=== PATIENT | male | born 1945 | race African-American/Black ===

== ENCOUNTER 2018-01-12 15:32 | Emergency (ER) | payer MEDICARE, OTHER ==
[~2018-01-12] VITALS: Ht 167.6 cm; Wt 64.0 kg
--- OUTSIDE RECORDS SUMMARY | 2018-01-12 15:39 | XMS REPORT | Continuity of Care Document ---
Author Author [facility] Organization [facility] Address Unknown Phone Unavailable Allergies Active Description Code Type Severity Reaction Onset Reported/Identified Relationship to Patient Clinical Status Yes No Known Drug Allergies [id number] N/A N/A Medications There is no data. Problems Date Dx Coded Attending Type Code Diagnosis Diagnosed By 09/25/2017 P I248 Other forms of acute ischemic heart disease 09/25/2017 S R0602 Shortness of breath 09/25/2017 S R0789 Other chest pain 09/25/2017 S R9431 Abnormal electrocardiogram [ECG] [EKG] 09/25/2017 S Z751 Person awaiting admission to adequate facility elsewhere 09/25/2017 S Z7982 retirement ( current) use of aspirin 09/25/2017 S [id number] Other care home (current) drug therapy 09/25/2017 S [id number] Personal history of nicotine dependence Procedures There is no data. Results There is no data. Encounters ACCT No. Visit Date/Time Discharge Status Pt. Type Provider Facility Loc./Unit Complaint [id number] 12/18/2017 12:41:36 12/18/2017 23:59:59 CLS Outpatient Harman Perez [id number] 12/17/2017 16:04:15 12/17/2017 23:59:59 CLS Outpatient Xochitl Keane [id number] 10/09/2017 14:51:14 10/09/2017 23:59:59 CLS Outpatient Xochitl Keane [id number] 09/03/2017 15:00:26 09/03/2017 23:59:59 CLS Outpatient Xochitl Keane [id number] 05/22/2017 12:31:07 05/22/2017 23:59:59 CLS Outpatient Xochitl Keane [id number] 12/25/2017 18:25:23 Document Registration [id number] 12/10/2017 19:50:56 Document Registration [id number] 12/10/2017 18:22:38 Document Registration [id number] 09/25/2017 01:52:00 Document Registration
[2018-01-12] MEDS ORDERED: HYDROcodone/APAP 5 MG/325 MG (LORTAB) TAB ONE (16:22)
--- NOTE | 2018-01-12 16:29 | ED General ---
General Chief Complaint: Orthopedic Problems Stated Complaint: POST OP BLEED Nursing Triage Note: PT TO ROOM 3 PER W/C PT CO OF L RECENT BKA BLEEDING, PT RELEASED FROM [facility] TODAY, PT HAS SURAJ RED BLOOD NOTED FROM BANDAGE ON L LOWER LEG, PT STATES HAS ALOT OF BLEEDING NOTED FROM SURGICAL AREA ON CARPET OF VEHICLE. Nursing Sepsis Screen: No Definite Risk Source of Information: Patient, Old Records Exam Limitations: No Limitations History of Present Illness Date Seen by Provider: Jan 12, 2018 Time Seen by Provider: 15:37 Initial Comments This 72-year-old gentleman presents to the emergency room with postoperative bleeding from his left BKA site. He was just dismissed from [facility] where he had the BKA performed. He reports his dressings were clean and and dry when he left. In route home to [place], [place], he noticed copious bloody drainage from the dressing to the extent that it dripped perhaps 1-2 mL of blood on the floor of his truck. He presents to the ER for assessment. Patient does take aspirin and Plavix. He recently had a stent placed in the left lower extremity. Allergies and Home Medications Allergies Coded Allergies: No Known Drug Allergies (Unverified , 01/12/18) Patient Home Medication List Home Medication List Reviewed: Yes Review of Systems Constitutional: no symptoms reported EENTM: no symptoms reported Respiratory: no symptoms reported Cardiovascular: see HPI Gastrointestinal: no symptoms reported Genitourinary: no symptoms reported Musculoskeletal: see HPI Skin: no symptoms reported Psychiatric/Neurological: No Symptoms Reported Hematologic/Lymphatic: See HPI Immunological/Allergic: no symptoms reported Past Ijfzxkr-Gdypfe-Hbesbl Hx Past Med/Social Hx: Reviewed and Corrections made Patient Social History Alcohol Use: Denies Use Recreational Drug Use: No Smoking Status: Former Smoker Recent Foreign Travel: No Contact w/Someone Who Travel: No Recent Infectious Disease Expo: No Recent Hopitalizations: Yes ([facility] DAY HOSP STAY) Physical Abuse: No Sexual Abuse: No Seasonal Allergies Seasonal Allergies: No Past Medical History Surgeries: Yes (STENTS, LBKA) Amputation, Orthopedic Respiratory: No Cardiac: Yes Coronary Artery Disease, Heart Attack, Hypertension, Peripheral Vascular Neurological: No Genitourinary: No Gastrointestinal: No Musculoskeletal: Yes (LBKA) Endocrine: Yes Diabetes, Non-Insulin dep HEENT: No Cancer: No Psychosocial: No Nursing Suicide Risk Score: 0 Physical Exam Vital Signs Vital Signs - First Documented 01/12/18 15:35 Temp 98.1 Pulse 77 Resp 18 B/P (MAP) 100/68 (79) Pulse Ox 99 Capillary Refill : Less Than 3 Seconds General Appearance: No Apparent Distress, WD/WN HEENT: PERRL/EOMI, Normal ENT Inspection Neck: Normal Inspection Respiratory: Lungs Clear, Normal Breath Sounds, No Accessory Muscle Use, No Respiratory Distress Cardiovascular: Regular Rate, Rhythm, No Edema, No Murmur Extremity: Other (Wound over the left BKA is intact. One staple has torn loose and it was removed. 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 Norm as Tested Skin: Normal Color, Warm/Dry, Other (See above) Progress/Results/Core Measures Suspected Sepsis Recent Fever Within 48 Hours: No Infection Criteria Present: None New/Unexplained Altered Menta: No Sepsis Screen: No Definite Risk SIRS Temperature:98.1 Pulse: 77 Respiratory Rate: 18 Blood Pressure 100 /68 Mean: 79 Results/Orders My Orders Orders - SRINIVAS AGUILAR MD Hydrocodone/Apap 5/325 Tablet (Lortab 5 (01/12/18 16:30) Hydrocodone/Apap 5/325 Tablet (Lortab 5 (01/12/18 16:22) Medications Given in ED Current Medications Medications Dose Ordered Sig/Jessy Route Start Time Stop Time Status Last Admin Dose Admin Acetaminophen/ Hydrocodone Bitart 1 tab ONCE ONCE PO 01/12/18 16:30 01/12/18 16:31 DC 01/12/18 16:30 1 TAB Vital Signs/I&O 01/12/18 01/12/18 15:35 16:45 Temp 98.1 98.1 Pulse 77 77 Resp 18 18 B/P (MAP) 100/68 (79) 100/68 (79) Pulse Ox 99 99 Capillary Refill : Less Than 3 Seconds Blood Pressure Mean: 79 Progress Note : Progress Note Bleeding had pretty well resolved by the time of my exam. I removed the staple that had pulled out of one side of the incision. Xeroform gauze was placed over the incision. The stump was then dressed with sterile gauze and Garett wrap' s similarly to the way it was stressed on his arrival. I discussed the case with Dr. Jouse Stearns, surgical call for [facility]. He reviewed the chart and confirmed the recent placement of a femoral stent. He advised continuing with aspirin and Plavix with caution. Departure Impression Primary Impression: Postoperative bleeding from incision Disposition: 01 HOME, SELF-CARE Condition: Improved Departure-Patient Inst. Decision time for Depature: 16:27 Patient Instructions: NO INSTRUCTIONS GIVEN Add. Discharge Instructions: Keep your dressings on until evaluation by your home health nurse, preferably for at least 24 hours. Elevate your lower leg with 2 or 3 pillows. Return to the ER or contact her surgeon if bleeding returns. I do expect there to be a small amount of bloody oozing but not a large amount of bleeding. Continue with your medications as previously prescribed. Contact your surgeon's office in the morning to provide them an update. All discharge instructions reviewed with patient and/or family. Voiced understanding. SRINIVAS AGUILAR MD Jan 12, 2018 16:29
[2018-01-12] MEDS ORDERED: HYDROcodone/APAP 5 MG/325 MG (LORTAB) TAB PO ONE (16:30)
[2018-01-12 16:45] VITALS: BP 100/68
== END 2018-01-12 16:45 | disposition home or self-care (01) ==
LOC: ER 15:35
DX: T87.89 Other complications of amputation stump (principal); I25.10 Atherosclerotic heart disease of native coronary artery without angina pectoris; I25.2 Old myocardial infarction; I10 Essential (primary) hypertension; E11.9 Type 2 diabetes mellitus without complications; Z87.891 Personal history of nicotine dependence
CPT/HCPCS: 99283